=== PATIENT | female | born 1990 | race Caucasian/White ===

== ENCOUNTER 2017-05-07 18:57 | Emergency (ER) | payer OTHER ==
--- NOTE | ~2017-05-07 | CT2 ---
[facility]. [facility] A Service of [facility] / [facility] RADIOLOGY TEXT RESULTS PATIENT: JAVIER WINCHESTER LOCATION: SED : [birth year] UNIT #: [id number] AGE: [address]: DAVIDSON DOMINGUEZ SEX: F ORDER DR: [id number] [address] [address] [id number] MR#: [id number] Acc #: [id number] NAME: JAVIER WINCHESTER. : 1990 SEX: F STUDY DATE/TIME: 05/07/2017 20:18 UNIT: SED ROOM: STUDY DESCRIPTION: CT Abd and Pelv W Cont Attending Physician: Davidson Dominguez Aprn Ordering Physician: Davidson Dominguez Aprn Primary Care Physician: Kevin Joe M.D. MEDICAL IMAGING REPORT This report is preliminary unless electronic signature is present. EXAM Abdomen and pelvis CT with contrast, 05/07/2017 INDICATION 27-year-old female with abdominal pain and weakness for a day, lower abdominal pain, elevated white count. No history of malignancy. TECHNIQUE Contrast-enhanced CT of the abdomen and pelvis was performed. No comparisons. This CT exam was performed with one or more of the following radiation dose reduction techniques: automatic exposure control, adjustment of mA and/or kV according to patient size, and iterative reconstruction. FINDINGS CT ABDOMEN: Included lung bases are clear. No effusion. Small hiatal hernia and incidental reflux in the esophagus. Aorta unremarkable. The spleen, adrenal glands and pancreas are unremarkable and the gallbladder is normal. Liver unremarkable. Kidneys are normal. CT PELVIS: Bladder unremarkable. No drainable fluid collection in the pelvis. Heterogeneous enhancement of the uterus probably relates to the patient's menstrual cycle. There are prominent follicles in both ovaries. Trace air within the bladder probably represents recent manipulation but should be correlated clinically. Bowel demonstrates no obstruction. Appendix normal. Inguinal canals are unremarkable. No focal inflammatory change of the bowel. Osseous structures demonstrate no suspicious bone lesion. IMPRESSION [facility] A Service of [facility] / [facility] RADIOLOGY TEXT RESULTS PATIENT: JAVIER WINCHESTER LOCATION: SED : 90 UNIT #: [id number] AGE: [address]: DAVIDSON DOMINGUEZ SEX: F ORDER DR: 1. Negative contrast-enhanced abdomen and pelvis CT. The appendix is normal. There is no bowel obstruction. Incidental follicles in both ovaries. 2. Trace air within the bladder, probably reflects recent manipulation but is otherwise nonspecific. Dictated by... Hansel Mix M.D. THIS IS AN ELECTRONICALLY VERIFIED REPORT Hansel Mix M.D. at 05/08/2017 3:13 PM Jonelle TD: 05/07/2017 22:58 JOB #: [id number] MEDICAL IMAGING REPORT Page 1 of 1
[~2017-05-07 18:57] MED LIST: AMOXICILLIN500 M1 PO; BACTRIM 400-801 TA1; ELIMITE60 GM TOP; FLAGYL PO; FLINTSTONE VITAMINS; IBUPROFEN100 MG; IRON1 TA1; KEFLEX PO; NAPROSYN375 MG PO; NO MEDICATIONS; PENICILLIN V P500 MG PO; PHENERGAN25 MG PO; PRENATA CHEWAB1 EACH; PRENATAL MULITV1 TAB PO; PRENATAL1 TA1; VOLTAREN75 MG PO
[2017-05-07 19:43] LABS: BASOPHIL% 0.3 % (0-2.5); DIFF IND NO; EOSINOPHIL# 0.1 X10e3 (0-0.7); EOSINOPHIL% 0.4 % (0.0-7.0); HEMATOCRIT 39.5 % (35.0-45.0); HEMOGLOBIN 13.1 gm/dL (12.0-16.0); LYMPHOCYTE# 1.4 X10e3 (1.0-3.5); MEAN CELL VOLUME 94.7 FL (83-96); MEAN CORPUSCULAR HEMOGLOBIN 31.5 PG (28-34); MEAN CORPUSCULAR HGB CONC 33.3 g/dL (30-36); MEAN PLATELET VOLUME 7.5 FL (6.5-11.5); MONOCYTE# 0.7 X10e3 (0-1.0); MONOCYTE% 5.7 % (3.0-12.0); NEUTROPHIL# 10.6 X10e3 (1.5-7.1); NEUTROPHIL% 82.6 % (40-75); PLATELET COUNT 201 X10e3 (140-420); RED BLOOD COUNT 4.17 X10e (3.90-5.30); RED CELL DISTRIBUTION WIDTH 12.5 % (11.0-15.5); WHITE BLOOD COUNT 12.8 X10e3 (4.0-10.5)
[2017-05-07 19:44] LABS: URINE SOURCE CLEAN CATCH
[2017-05-07 19:48] LABS: URINE APPEARANCE CLEAR; URINE BILIRUBIN NEG (NEG); URINE BLOOD NEG (NEG); URINE COLOR YELLOW; URINE GLUCOSE NEG (NORM); URINE KETONE NEG (NEG); URINE LEUKOCYTE ESTERASE NEG (NEG); URINE NITRATE NEG (NEG); URINE PROTEIN NEG (NEG); URINE SPECIFIC GRAVITY 1.015 (1.003-1.035)
[2017-05-07 19:50] LABS: MICRO INDICATED? NO
[2017-05-07 20:01] LABS: ALBUMIN SERUM 4.5 g/dL (3.5-5.0); ALKALINE PHOSPHATASE 85 U/L (32-92); ALT (SGPT) 17 U/L (10-40); AMYLASE 16 U/L (0-46); AST (SGOT) 17 U/L (10-42); BILIRUBIN,TOTAL 0.6 mg/dL (0.2-2.0); BLOOD UREA NITROGEN 12 mg/dL (9-23); CALCIUM SERUM 9.4 mg/dL (8.4-10.2); CARBON DIOXIDE 26 mmol/L (22-31); CHLORIDE 104 mmol/L (100-111); CREATININE SERUM 0.6 mg/dL (0.6-1.4); GLOM FILT RATE Estimated 124.9 mL/min (>60); GLUCOSE FASTING 94 mg/dL (70-110); LIPASE 25 U/L (22-51); POTASSIUM 3.8 mmol/L (3.5-5.1); PROTEIN TOTAL SERUM 7.6 g/dL (6.0-8.3); SODIUM 137 mmol/L (135-145)
[2017-05-07 20:02] LABS: BILIRUBIN, DIRECT <0.1 mg/dL (0.0-0.2); BILIRUBIN,INDIRECT 0.5 mg/dL (0.0-0.9)
== END 2017-05-07 22:41 | disposition home or self-care (01) ==
LOC: SED 18:57
PROVIDERS: Nurse Practitioner Family
DX: R10.31 Right lower quadrant pain (principal); R10.32 Left lower quadrant pain; F17.210 Nicotine dependence, cigarettes, uncomplicated
CPT/HCPCS: 36415; 74177; 80048; 80076; 81003; 82150; 83690; 84703; 85025; 96360; 99285; Q9967

== ENCOUNTER 2017-06-03 19:36 | Emergency (ER) | payer OTHER ==
--- NOTE | ~2017-06-03 | CR21 ---
[facility]. [facility] A Service of [facility] RADIOLOGY TEXT RESULTS PATIENT: JAVIER WINCHESTER LOCATION: SED : 90 UNIT #: [id number] AGE: [address]: AMBROSE BORGES SEX: F ORDER DR: [id number] [address] [address] [id number] E MR#: [id number] Acc #: [id number] NAME: JAVIER WINCHESTER : 1990 SEX: F STUDY DATE/TIME: 06/03/2017 20:32 UNIT: SED ROOM: STUDY DESCRIPTION: CR Ankle Min 3 Views Rt Attending Physician: Ambrose Borges Ordering Physician: Ambrose Borges Primary Care Physician: Kevin Joe M.D. MEDICAL IMAGING REPORT This report is preliminary unless electronic signature is present. EXAM Right ankle, 06/03/2017 INDICATION 27-year-old female with a history of falling in a hole yesterday. Lateral swelling and pain. TECHNIQUE 3 views of the right ankle COMPARISON No comparisons FINDINGS There is mild lateral soft tissue swelling but no associated fracture. Ankle mortise intact. IMPRESSION Lateral soft tissue swelling, otherwise negative. Dictated by... Hansel Mix M.D. THIS IS AN ELECTRONICALLY VERIFIED REPORT Hansel Mix M.D. at 06/04/2017 2:01 PM Yancy TD: 06/04/2017 12:00 JOB #: [id number] MEDICAL IMAGING REPORT Page 1 of 1
== END 2017-06-03 21:02 | disposition home or self-care (01) ==
LOC: SED 19:36
DX: S93.401A Sprain of unspecified ligament of right ankle, initial encounter (principal); F41.9 Anxiety disorder, unspecified; F32.9 Major depressive disorder, single episode, unspecified; F17.210 Nicotine dependence, cigarettes, uncomplicated; X50.1XXA Overexertion from prolonged static or awkward postures, initial encounter; Y92.009 Unspecified place in unspecified non-institutional (private) residence as the place of occurrence of the external cause
CPT/HCPCS: 29540; 73610; 84703; 99284